=== PATIENT | male | born 1965 | race Caucasian/White ===

== ENCOUNTER 2021-03-22 09:11 | Emergency (ER) | payer SELFPAY ==
[~2021-03-22 09:11] MED LIST: Sodium Chloride 0.9% 100 ML BAG ONE
[2021-03-22 10:31] LABS: Hemoglobin 16.8 g/dL (14.0-18.0); Mean Corpuscular HGB CONC 33.1 g/dL (32.0-36.0); Mean Corpuscular Hemoglobin 33.4 pg (27.0-31.0); Mean Corpuscular Volume 100.8 fL (78.0-98.0); Mean Platelet Volume 5.9 fL (7.4-10.4); Platelet Count 338 thou/uL (130-400); RBC Distribution Width 12.9 % (11.5-14.5); Red Blood Cell (RBC) Count 5.05 mill/uL (4.70-6.10); White Blood Cell (WBC) Count 11.6 thou/uL (4.8-10.8)
[2021-03-22 10:49] LABS: Anion Gap 11 mmol/L (10-20); BUN (Urea Nitrogen) 8 mg/dL (8.4-25.7); Bilirubin, Total 0.3 mg/dL (0.2-1.2); Calc. Creatinine Clearance 0 mL/min (70-130); Calcium 9.4 mg/dL (7.8-10.44); Carbon Dioxide 31 mmol/L (22-29); Chloride 90 mmol/L (98-107); Glucose 116 mg/dL (70-105); Potassium 4.1 mmol/L (3.5-5.1); Protein, Total 6.8 g/dL (6.0-8.3); Sodium 128 mmol/L (136-145)
[2021-03-22] MEDS ORDERED: Iopamidol 370 76% 125 ML VIAL FS ONE (10:49)
[2021-03-22 10:50] LABS: ALT (SGPT) 13 U/L (8-55); AST (SGOT) 10 U/L (5-34); Alkaline Phosphatase 88 U/L (40-110); Globulin 2.8 g/dL (2.4-3.5); Lipase 13 U/L (8-78); Magnesium 1.9 mg/dL (1.6-2.6)
[2021-03-22 10:59] LABS: Band 2 % (5-11); Eosinophils 2 % (0-10); Lymphocytes 14 % (21-51); MDiff Complete? YES; Monocytes 5 % (0-10); Neutrophil 77 % (42-75); Platelet Morphology Comment Appears Adequate; RBC Morphology Normal
[2021-03-22] MEDS ORDERED: Sodium Chloride 0.9% 1,000 ML ONE (11:24)
[2021-03-22 12:09] LABS: Bilirubin Negative (Negative); Blood, Urine Negative (Negative); Clarity Clear (Clear); Glucose, Urine (Dipstick) Negative (Negative); Ketone, Urine Negative (Negative); Leukocyte Negative (Negative); Nitrite Negative (Negative); Protein, Urine (Dipstick) Negative (Neg-Trace); Urobilinogen 0.2 mg/dL (Less than 2)
[2021-03-22] MEDS ORDERED: Ondansetron PF 4 MG/2 ML Vial ONE (14:08)
[2021-03-22] MEDS ORDERED: Morphine 2 MG/ML VIAL ONE (14:08)
== END 2021-03-22 15:50 | disposition short-term general hospital (02) ==
LOC: MADERS 09:11
DX: N13.5 Crossing vessel and stricture of ureter without hydronephrosis (principal); E87.1 Hypo-osmolality and hyponatremia; E87.8 Other disorders of electrolyte and fluid balance, not elsewhere classified; J44.9 Chronic obstructive pulmonary disease, unspecified; F17.210 Nicotine dependence, cigarettes, uncomplicated; Z79.84 Long term (current) use of oral hypoglycemic drugs; Z79.52 Long term (current) use of systemic steroids; Z79.899 Other long term (current) drug therapy
CPT/HCPCS: 71275; 74174; 80053; 81003; 83605; 83690; 83735; 84443; 84484; 85025; 93005; 96374; 96375; J2270; J2405; J3490; J7050; Q9967

== ENCOUNTER 2023-08-12 10:52 | Emergency (ER) | payer SELFPAY ==
[~2023-08-12 10:52] MED LIST changes: +Iopamidol 370 76% 100 ML VIAL ONE; -Sodium Chloride 0.9% 100 ML BAG ONE
[2023-08-12 11:40] LABS: #Basophils 0.1 thou/uL (0.0-0.2); #Eosinphils 0.1 thou/uL (0.0-0.7); #Lymphocytes 1.9 thou/uL (1.20-3.40); #Monocytes 0.7 thou/uL (0.11-0.59); #Neutrophils 6.4 thou/uL (1.40-6.50); %Basophils 1.4 % (0.0-1.0); %Eosinophils 1.3 % (0.0-10.0); %Lymphocytes 20.3 % (21.0-51.0); %Monocytes 7.5 % (0.0-10.0); %Neutrophils 69.5 % (42.0-75.0); Hematocrit 48.2 % (42.0-52.0); Hemoglobin 15.6 g/dL (14.0-18.0); Mean Corpuscular HGB CONC 32.3 g/dL (32.0-36.0); Mean Corpuscular Hemoglobin 31.7 pg (27.0-31.0); Mean Corpuscular Volume 97.9 fl (78.0-98.0); Platelet Count 201 10x3/uL (130-400); RBC Distribution Width 13.5 % (11.5-14.5); Red Blood Cell (RBC) Count 4.92 mill/uL (4.70-6.10); White Blood Cell (WBC) Count 9.3 10x3/uL (4.8-10.8)
[2023-08-12 11:48] LABS: Prothrombin Time 13.1 sec (12.0-14.7)
[2023-08-12 11:49] LABS: PTT 32.5 sec (22.9-36.1)
[2023-08-12 11:52] LABS: D-Dimer Test 0.89 mcg/mL (0.27-0.43)
[2023-08-12 11:59] LABS: ALT (SGPT) 14 U/L (8-55); AST (SGOT) 15 U/L (5-34); Albumin 3.9 g/dL (3.5-5.0); Alkaline Phosphatase 108 U/L (40-110); Anion Gap 13 mmol/L (10-20); BUN (Urea Nitrogen) 5 mg/dL (8.4-25.7); Bilirubin, Total 0.4 mg/dL (0.2-1.2); Calc. Creatinine Clearance 0 mL/min (70-130); Calcium 8.5 mg/dL (7.8-10.44); Carbon Dioxide 27 mmol/L (22-29); Chloride 97 mmol/L (98-107); Estimated GFR 107; Globulin 2.6 g/dL (2.4-3.5); Glucose 117 mg/dL (70-105); Magnesium 1.8 mg/dL (1.6-2.6); Protein, Total 6.5 g/dL (6.0-8.3); Sodium 133 mmol/L (136-145)
[2023-08-12 12:01] LABS: Troponin I Less than 0.010 ng/mL (< 0.028)
== END 2023-08-12 13:16 | disposition home or self-care (01) ==
LOC: MADERS 10:52
DX: J43.2 Centrilobular emphysema (principal); I49.3 Ventricular premature depolarization; J44.9 Chronic obstructive pulmonary disease, unspecified; F17.210 Nicotine dependence, cigarettes, uncomplicated
CPT/HCPCS: 71045; 71275; 80053; 83735; 83880; 84443; 84484; 85025; 85379; 85610; 85730; 93005; Q9967

== ENCOUNTER 2024-06-15 10:32 | Emergency (ER) | payer SELFPAY ==
[2024-06-15 11:57] LABS: #Basophils 0.1 thou/uL (0.0-0.2); #Lymphocytes 0.9 thou/uL (1.20-3.40); #Monocytes 0.5 thou/uL (0.11-0.59); #Neutrophils 4.1 thou/uL (1.40-6.50); %Basophils 1.8 % (0.0-1.0); %Eosinophils 0.1 % (0.0-10.0); %Lymphocytes 15.9 % (21.0-51.0); %Monocytes 8.8 % (0.0-10.0); %Neutrophils 73.4 % (42.0-75.0); Hematocrit 55.2 % (42.0-52.0); Hemoglobin 16.7 g/dL (14.0-18.0); Mean Corpuscular HGB CONC 30.2 g/dL (32.0-36.0); Mean Corpuscular Hemoglobin 29.8 pg (27.0-31.0); Mean Corpuscular Volume 98.7 fl (78.0-98.0); Mean Platelet Volume 6.8 fL (7.4-10.4); Platelet Count 227 10x3/uL (130-400); RBC Distribution Width 13.6 % (11.5-14.5); White Blood Cell (WBC) Count 5.5 10x3/uL (4.8-10.8)
[2024-06-15 12:14] LABS: ALT (SGPT) 26 U/L (8-55); AST (SGOT) 27 U/L (5-34); Albumin 3.5 g/dL (3.5-5.0); Alkaline Phosphatase 141 U/L (40-110); Anion Gap 11 mmol/L (10-20); BUN (Urea Nitrogen) 6 mg/dL (8.4-25.7); Bilirubin, Total 0.6 mg/dL (0.2-1.2); Calc. Creatinine Clearance 0 mL/min (70-130); Calcium 8.6 mg/dL (7.8-10.44); Carbon Dioxide 35 mmol/L (22-29); Chloride 88 mmol/L (98-107); Estimated GFR 105; Globulin 3.6 g/dL (2.4-3.5); Glucose 94 mg/dL (70-105); Potassium 4.2 mmol/L (3.5-5.1); Protein, Total 7.1 g/dL (6.0-8.3); Sodium 130 mmol/L (136-145)
[2024-06-15] MEDS ORDERED: Furosemide 20 MG (2 mL) VIAL ONE (12:38)
[2024-06-15 12:48] LABS: Troponin I 0.116 ng/mL (< 0.028)
== END 2024-06-15 13:22 | disposition home or self-care (01) ==
LOC: MADERS 10:32
DX: R22.43 Localized swelling, mass and lump, lower limb, bilateral (principal); I11.0 Hypertensive heart disease with heart failure; I50.9 Heart failure, unspecified; R79.1 Abnormal coagulation profile; I49.3 Ventricular premature depolarization; E87.1 Hypo-osmolality and hyponatremia; F17.210 Nicotine dependence, cigarettes, uncomplicated
CPT/HCPCS: 71046; 80053; 83880; 84443; 84484; 85025; 85379; 93005; J1940

== ENCOUNTER 2024-08-18 09:00 | Emergency (ER) | payer SELFPAY ==
[2024-08-18] MEDS ORDERED: Nitroglycerin 0.4 MG TAB 1 EACH ONE (09:59)
[2024-08-18] MEDS ORDERED: methylPREDNISolone Sod Succ/PF 125 MG/2 ML VIAL ONE (10:00)
[2024-08-18] MEDS ORDERED: Furosemide 40 MG (4 mL) VIAL ONE (10:00)
[2024-08-18] MEDS ORDERED: Aspirin Chewable 81 MG TAB ONE (10:00)
[2024-08-18] MEDS ORDERED: Ipratropium Bromide 2.5 ml Neb ONE ×2 (10:03→11:39)
[2024-08-18] MEDS ORDERED: Albuterol 2.5 MG (3 mL) NEB ONE ×2 (10:03→11:39)
[2024-08-18 10:05] LABS: Hematocrit 54.8 % (42.0-52.0); Hemoglobin 17.2 g/dL (14.0-18.0); Mean Corpuscular HGB CONC 31.3 g/dL (32.0-36.0); Mean Corpuscular Hemoglobin 29.1 pg (27.0-31.0); Mean Corpuscular Volume 92.8 fl (78.0-98.0); Platelet Count 191 10x3/uL (130-400); RBC Distribution Width 14.5 % (11.5-14.5); Red Blood Cell (RBC) Count 5.91 mill/uL (4.70-6.10); White Blood Cell (WBC) Count 8.2 10x3/uL (4.8-10.8)
[2024-08-18 10:17] LABS: ALT (SGPT) 64 U/L (Less than 45); AST (SGOT) 100 U/L (11-34); Albumin 3.6 g/dL (3.1-4.5); Alkaline Phosphatase 133 U/L (40-110); Anion Gap 18 mmol/L (10-20); BUN (Urea Nitrogen) 11 mg/dL (8.4-25.7); Bilirubin, Total 1.1 mg/dL (0.3-1.2); Calc. Creatinine Clearance 0 mL/min (70-130); Calcium 8.4 mg/dL (7.8-10.44); Carbon Dioxide 26 mmol/L (22-29); Chloride 74 mmol/L (98-107); Estimated GFR 108; Globulin 3.4 g/dL (2.4-3.5); Glucose 116 mg/dL (70-105); Magnesium 1.6 mg/dL (1.6-2.6); Potassium 5.1 mmol/L (3.5-5.1)
[2024-08-18 10:23] LABS: Troponin I 0.042 ng/mL (< 0.028)
[2024-08-18 10:26] LABS: Critical Call w/ Read Back NO
[2024-08-18 10:27] LABS: Band 3 % (5-11); Lymphocytes 10 % (21-51); MDiff Complete? YES; Manual Diff?? YES; Monocytes 4 % (0-10); Neutrophil 83 % (42-75)
[2024-08-18 10:28] LABS: Anisocytosis SLIGHT = 6-15 cells (100X) (0-5/hpf); Platelet Adequacy Comment Appears Adequate
[2024-08-18 10:33] LABS: Sodium 113 mmol/L (136-145)
[2024-08-18 10:35] LABS: Base Excess-Venous 6.7 mmol/L (-2.0 to 3.0); Bicarbonate (HCO3v) 35.6 mmol/L (22.0-28.0); CO2 Tension (PvCO2) 61.7 mmHg (42.0-51.0); Calcium, Ionized 1.01 mmol/L (1.15-1.33); Chloride 70 mmol/L (98-107); Hemoglobin - Calc 21.2 g/dL (14.0-18.0); Potassium 5.5 mmol/L (3.5-5.1); Sodium 113 mmol/L (138-145); T. Carbon Dioxide 37.5 mmol/L (22.0-28.0); vO2 Saturation-calc 94.2 % (60.0-85.0)
[2024-08-18] MEDS ORDERED: cefTRIAXone (ROCEPHIN) 2 GM VIAL ONE (10:35)
[2024-08-18] MEDS ORDERED: Sodium Chloride 0.9% 100 ML ONE (10:35)
[2024-08-18] MEDS ORDERED: Enoxaparin 80 MG (0.8 mL) SYRINGE ONE (11:10)
[2024-08-18] MEDS ORDERED: Azithromycin 500 MG VIAL ONE (11:10)
[2024-08-18] MEDS ORDERED: Sodium Chloride 0.9% 250 ML 250 ML ONE (11:11)
[2024-08-18] MEDS ORDERED: Nitroglycerin 50 MG/250 ML BOT 250 ML ONE (11:11)
[2024-08-18] MEDS ORDERED: Albuterol 2.5 MG (0.5 mL) NEB ONE (11:39)
== END 2024-08-18 12:15 | disposition short-term general hospital (02) ==
LOC: MADERS 09:00
DX: J44.1 Chronic obstructive pulmonary disease with (acute) exacerbation (principal); I16.1 Hypertensive emergency; E87.1 Hypo-osmolality and hyponatremia; J18.9 Pneumonia, unspecified organism; I11.0 Hypertensive heart disease with heart failure; I50.9 Heart failure, unspecified; J96.12 Chronic respiratory failure with hypercapnia; R74.01 Elevation of levels of liver transaminase levels; L40.9 Psoriasis, unspecified; G25.81 Restless legs syndrome; I71.40 Abdominal aortic aneurysm, without rupture, unspecified; G43.909 Migraine, unspecified, not intractable, without status migrainosus; F17.210 Nicotine dependence, cigarettes, uncomplicated; Z79.899 Other long term (current) drug therapy
CPT/HCPCS: 36415; 71045; 80053; 82330; 82803; 83605; 83735; 83880; 84484; 85025; 87040; 93005; 94760; 96365; 96367; 96368; 96372; 96375; J0456; J0696; J1650; J1940; J2919; J7050; J7611; J7644